=== PATIENT | male | born 1940 | race Caucasian/White ===

== ENCOUNTER → 2016-06-30 | Outpatient (CLI) | payer MEDICARE ==
[~2016-06-30] MED LIST: ASPI81 PO; GLIP-157 PO; LISI-363 PO; METF850T PO; SIMV80TA PO; TAMS0.4C67 PO
[2016-07-01 04:17] LABS: FREE PSA/PSA RATIO 0.16 ratio (())
== END ==
LOC: PLAB 07:34
PROVIDERS: ATTEND Urology
DX: R97.20 Elevated prostate specific antigen [PSA] (principal)
CPT/HCPCS: 36415; 84153; 84154